=== PATIENT | male | born 1970 | race Hispanic/Latino ===

== ENCOUNTER 2022-10-28 16:51 | Emergency (ER) | payer OTHER ==
[~2022-10-28] VITALS: Ht 172.7 cm; Wt 72.5 kg
[~2022-10-28 16:51] MED LIST: NAPROSYN500 MG PO; NORCO 5-325 TA1 EACH PO
[2022-10-28] MEDS ORDERED: PRILOSEC OTC20 MG PO (17:35)
== END 2022-10-28 17:45 | disposition home or self-care (01) ==
LOC: ED 16:51
DX: R13.10 Dysphagia, unspecified (principal); K59.00 Constipation, unspecified
CPT/HCPCS: 74022; 99283-25

== ENCOUNTER 2024-07-11 17:38 | Emergency (ER) | payer OTHER ==
[~2024-07-11] VITALS: Ht 172.7 cm; Wt 64.0 kg
[~2024-07-11 17:38] MED LIST changes: +PRILOSEC OTC20 MG PO
[2024-07-11] MEDS ORDERED: FENOFIBRATE48 MG PO (17:52)
[2024-07-11] MEDS ORDERED: LIDOCAINE/RACEPINEP/TETRACAINE 3 ML SYR TOP ONE (18:30)
[2024-07-11 19:39] VITALS: BP 122/79
== END 2024-07-11 19:40 | disposition home or self-care (01) ==
LOC: ED 17:38
DX: K40.90 Unilateral inguinal hernia, without obstruction or gangrene, not specified as recurrent (principal); L02.224 Furuncle of groin; Z79.899 Other long term (current) drug therapy
CPT/HCPCS: 10060; 99283